=== PATIENT | male | born 1990 | race Caucasian/White ===

== ENCOUNTER 2017-08-10 17:56 | Emergency (ER) | payer SELFPAY ==
[2017-08-10 18:11] VITALS: TEMP 97.4
[2017-08-10] MEDS ORDERED: SULFA/TRIMETH 800/160 (DS) TAB 1 EA TAB PO ONE (18:39)
[2017-08-10] MEDS ORDERED: DOXYCYCLINE HYCLATE CAP 100 MG CAP PO ONE (18:40)
--- NOTE | 2017-08-10 18:51 | ED.PDOC ---
History of Present Illness - General Chief Complaint: Skin/Abrasion/Tear Stated Complaint: abscess Time Seen by Provider: 08/10/17 18:09 Source: patient, family Exam Limitations: no limitations - History of Present Illness Initial Comments: L MEDIAL THIGH/GROIN ABSCESS. NOTICED 2 D AGO. HAD MRSA IFXN OF HER CSXN SCAR, THUS MIGHT HAD TRANSFERRED. Timing/Duration: constant Severity: moderate Location: extremities Improving Factors: nothing Worsening Factors: nothing Associated Symptoms: denies symptoms Allergies/Adverse Reactions: Allergies Cefaclor [From Ceclor] Allergy (Verified 08/10/17 18:11) Cephalexin [From Keflex] Allergy (Verified 08/10/17 18:11) Penicillins Allergy (Verified 08/10/17 18:11) Home Medications: Ambulatory Orders Doxycycline (Monohydrate) [Doxycycline Monohydrate] 100 mg PO BID #20 cap Sulfa/Trimeth 800/160 (Ds) Tab [Bactrim DS Tab] 1 unit PO BID 10 Days #20 tab Review of Systems - Review of Systems Constitutional: Denies: chills, fever EENTM: States: no symptoms reported Respiratory: States: no symptoms reported Cardiology: States: no symptoms reported Gastrointestinal/Abdominal: Denies: abdominal pain, nausea Genitourinary: Denies: dysuria, frequency Musculoskeletal: Denies: joint pain, muscle pain Skin: States: see HPI, lumps, rash Neurological: States: no symptoms reported Endocrine: States: no symptoms reported. Denies: excessive sweating Hematologic/Lymphatic: States: no symptoms reported All other Systems: Reviewed and Negative Past Medical History (General) - Patient Medical History Hx Asthma: Yes Surgical History: no surgical history - Vaccination History Hx Influenza Vaccination: No Hx Pneumococcal Vaccination: No - Social History Hx Tobacco Use: No Hx Alcohol Use: No Hx Substance Use: No Hx Substance Use Treatment: No Hx Depression: No Family Medical History - Family History Mother Family History: Unknown Physical Exam - Physical Exam General Appearance: Alert, Well Nourished Eyes, Ears, Nose, Throat Exam: PERRL/EOMI, normal ENT inspection Neck: full range of motion, normal inspection Cardiovascular/Chest: normal peripheral pulses, regular rate, rhythm Respiratory: chest non-tender, lungs clear Gastrointestinal/Abdominal: non tender, soft Extremity: normal range of motion, no pedal edema, no calf tenderness Neurologic: alert, normal mood/affect Skin Exam: warm/dry Skin Problem Location: lower extremities Skin Character: abscess, erythema, thickening, warm, other - L MEDIAL THIGH ERYTHEMATOUS CELLULITIS 8X8 CM. 2X1 CM AREA OF INDURATION BUT NOT FLUCTUANT AND NOT YET AMENABLE TO I&D (SEROSANGUINOUS FLUID, NOT PURULENT). Lymphatic: no adenopathy Progress - Progress Progress: 08/10/17 18:56 L MEDIAL THIGH CELLULITIS AND ABSCESS, NOT YET AMENABLE TO I&D. THUS RX DOUBLE COVERAGE EMPIRICALLY FOR MRSA (BACTRIM AND DOXY), AND RX TOPICAL MUPIROCIN. Departure - Departure Clinical Impression: Abscess Cellulitis Qualifiers: Site of cellulitis: extremity Site of cellulitis of extremity: lower extremity Laterality: left Qualified Code(s): L03.116 - Cellulitis of left lower limb Disposition: Discharge to Home or Self Care Condition: Good Departure Forms: ED Discharge - Pt. Copy, Patient Portal Self Enrollment Instructions: DI for Cellulitis -- Adult Diet: resume usual diet Activity: increase activity as tolerated Prescriptions: Doxycycline (Monohydrate) [Doxycycline Monohydrate] 100 mg PO BID #20 cap Sulfa/Trimeth 800/160 (Ds) Tab [Bactrim DS Tab] 1 unit PO BID 10 Days #20 tab Home Medications: Ambulatory Orders Doxycycline (Monohydrate) [Doxycycline Monohydrate] 100 mg PO BID #20 cap Sulfa/Trimeth 800/160 (Ds) Tab [Bactrim DS Tab] 1 unit PO BID 10 Days #20 tab Additional Instructions: Please return to the ER or see your doctor if the infection does not improve by 10 days, but sooner if it worsens.
[2017-08-10 19:10] VITALS: BP 114/72; O2SAT 98
== END 2017-08-10 19:09 | disposition home or self-care (01) ==
LOC: ER 17:56
DX: L02.416 Cutaneous abscess of left lower limb (principal); L03.116 Cellulitis of left lower limb

== ENCOUNTER → 2017-09-27 | Outpatient (CLI) | payer SELFPAY | LOC: YCFC.O 16:01 | DX: L02.91 Cutaneous abscess, unspecified (principal); L03.317 Cellulitis of buttock ==